=== PATIENT | male | born 1990 | race Hispanic/Latino ===

== ENCOUNTER 2016-08-06 16:21 | Emergency (ER) | payer BC ==
[2016-08-06 16:29] VITALS: BP 158/94; PULSE 71; RESP 16; TEMP 98.8; O2SAT 100
--- NOTE | 2016-08-06 16:43 | ED PDOC ---
HPI: Abdomen Time Seen by Provider: 08/06/16 16:35 Chief Complaint (Nursing): Abdominal Pain Chief Complaint (Provider): Abdominal Pain History Per: Patient History/Exam Limitations: no limitations Onset/Duration Of Symptoms: Days Current Symptoms Are (Timing): Still Present Severity: Mild Location Of Pain/Discomfort: Suprapubic Quality Of Discomfort: "Pain" Associated Symptoms: denies: Fever, Nausea, Vomiting, Urinary Symptoms Exacerbating Factors: None Alleviating Factors: None Additional Complaint(s): Patient is a 26 year old male who presents to ED for abdominal pain that began today. Patient notes that he developed penile discharge yesterday which continued into today as well. Denies urinary changes, back pain or fever. Patient notes sexual intercourse 2 weeks with condom protection Past Medical History Reviewed: Historical Data, Nursing Documentation, Vital Signs Vital Signs: Last Vital Signs Temp 98.8 F 08/06/16 16:27 Pulse 71 08/06/16 16:27 Resp 16 08/06/16 16:27 BP 158/94 H 08/06/16 16:27 Pulse Ox 100 08/06/16 16:48 - Medical History PMH: No Chronic Diseases - Surgical History Surgical History: No Surg Hx - Family History Family History: States: No Known Family Hx - Living Arrangements Living Arrangements: With Family - Allergies Allergies/Adverse Reactions: Allergies Allergy/AdvReac Type Severity Reaction Status Date / Time No Known Allergies Allergy Verified 08/06/16 16:27 Review of Systems Constitutional: Negative for: Fever, Chills Gastrointestinal: Positive for: Abdominal Pain. Negative for: Nausea, Vomiting Genitourinary Male: Positive for: Penile Discharge. Negative for: Dysuria, Frequency, Hematuria, Scrotal Pain, Penile Pain Musculoskeletal: Negative for: Back Pain Physical Exam - Reviewed Nursing Documentation Reviewed: Yes Vital Signs Reviewed: Yes - Physical Exam Appears: Positive for: Non-toxic, No Acute Distress Skin: Positive for: Normal Color, Warm Eye Exam: Positive for: Normal appearance Gastrointestinal/Abdominal: Positive for: Normal Exam. Negative for: Tenderness , Distended Male Genital Exam: Positive for: normal genitalia. Negative for: inguinal tenderness, lesions ((-) vesicles ), scrotum tenderness (R), scrotum tenderness (L), urethral discharge Back: Positive for: Normal Inspection. Negative for: L CVA Tenderness, R CVA Tenderness Extremity: Positive for: Normal ROM Neurologic/Psych: Positive for: Alert, Oriented - ECG O2 Sat by Pulse Oximetry: 100 (RA) Pulse Ox Interpretation: Normal Medical Decision Making Medical Decision Making: Time: 1640 Impression: STD Plan: Discussed with patient that we will collect urine to check for STD's but these results can take up to 3 days to return. Instructed patient that best course of action is prophylaxis treat, patient verbalized understanding. -- Rocephin IM -- Zithromax PO -- Urine dip -- Chlamydia/ GC rNA -- RPR -- U/A Scribe Attestation: Documented by Ly Bella acting as a scribe for Tahira Emmanuel MD. Scribe Attestation: All medical record entries made by the Scribe were at my direction and personally dictated by me. I have reviewed the chart and agree that the record accurately reflects my personal performance of the history, physical exam, medical decision making, and the department course for this patient. I have also personally directed, reviewed, and agree with the discharge instructions and disposition. Disposition - Clinical Impression Clinical Impression: Urethritis - Disposition Disposition: Routine/Home Disposition Time: 17:26 Condition: STABLE Additional Instructions: FOLLOW-UP WITH YOUR PMD WITHIN 2 DAYS FOR REEVALUATION. Instructions: Nonspecific Urethritis in Men (ED)
[2016-08-06] MEDS ORDERED: cefTRIAXone (Rocephin) 250 mg Inj IM STA (16:45)
[2016-08-06] MEDS ORDERED: cefTRIAXone (Rocephin) 250 mg Inj ONE (17:14)
[2016-08-06] MEDS ORDERED: Sterile Water 10 ML IV ONE (17:14)
[2016-08-06 18:36] LABS: URINE BACTERIA RARE (<OCC); URINE BILIRUBIN NEGATIVE (NEGATIVE); URINE BLOOD NEGATIVE (NEGATIVE); URINE COLOR YELLOW (YELLOW); URINE GLUCOSE (UA) NEG (Normal); URINE KETONE NEGATIVE (NEGATIVE); URINE LEUKOCYTE ESTERASE MOD Leu/uL (Negative); URINE PROTEIN NEGATIVE (NEGATIVE); URINE UROBILINOGEN 0.2-1.0 mg/dL (0.2-1.0); WBC URINE 43 /hpf (0-5)
== END 2016-08-06 17:47 | disposition home or self-care (01) ==
LOC: H.ER 16:21
DX: N34.2 Other urethritis (principal); A54.9 Gonococcal infection, unspecified
CPT/HCPCS: 80074; 81003; 86592; 87390; 87491; 87591; 96372; 99281; J0696